=== PATIENT | male | born 1935 | race Asian ===

== ENCOUNTER 2016-11-09 18:56 | Emergency (ER) | payer MEDICARE ==
--- NOTE | 2016-11-09 18:49 | ED.REPORT ---
HPI-General Illness Date of Service Nov 09, 2016 ED Provider: Dr. Christian Francis M.D. Patient is an 81 year old male with a history of dementia and hypertension who presents to the ED via EMS after being seen at [facility] for urinary retention onset 0300 this morning. While there, a Ahuja catheter placement was attempted but unsuccessful. Dr. Colbert from urology was consulted and the patient was sent here for additional urology consult and catheter placement. CBC and metabolic panel at [facility] were unremarkable. Patient had good kidney function. The patient now reports suprapubic pain and urinary retention. History is limited due to patient's supposed underlying dementia. He has had similar symptoms in the past. Patient is DNR/DNI. Nursing Notes Stated Complaint: URINARY RETENTION Nursing Notes Reviewed: Yes Allergies: Coded Allergies: No Known Allergies (Unverified , 11/09/16) Scheduled Ciprofloxacin (Ciprofloxacin) 500 Mg Tablet 500 MG PO BID General Time Seen by MD: 18:49 Chief Complaint Other (Urinary Retention) Hx Obtained From: EMS Arrived By: Ambulance Onset Occurred: 17 - 20 hours ago Symptom Duration: Since onset Location: : Abdomen Quality: Painful Severity: Current: Moderate Severity: Maximum: Moderate Pertinent Negative: Relieved by nothing Recent Healthcare: Recent doctor visit, Recent testing Past Medical History Past Medical History Notes: Daughter: Robert Hidalgo [phone] Patient is DNR/DNI Past Medical History Dementia Hypertension Spinal cord fracture Past Surgical History None reported Smoking History Unknown if Ever Smoker Social History Other Social History: Good social support, , Lives with children Review of Systems Patient reports urinary retention and suprapubic pain. Unable to Obtain ROS Patient condition, Mental status (Dementia) Physical Exam Vital Signs Vital Signs Date Time Temp Pulse Resp B/P Pulse Ox O2 Delivery O2 Flow Rate FiO2 11/09/16 19:04 36.8 80 16 165/64 99 Room Air Initial VS: Reviewed Skin: Warm, Dry Psychiatric: Mood/affect normal, Behavior normal General/Constitutional: Awake, Alert Appearance / Presentation: Positive: Cachectic, Uncomfortable Head / Eyes: Atraumatic, Normocephalic ENT: Airway patent, Mucous membranes moist Respiratory / Chest: Breath sounds NL, Breath sounds = bilat, No respiratory distress Cardiovascular: Heart rate NL, Regular rhythm, Heart sounds NL, No gallop, No murmurs, No rubs Abdomen: Atraumatic Tenderness/Guarding/Rebound: Positive: Tender suprapubic Fullness in suprapubic region Interpretation & Diagnostics Lab Results Interpretation Test 11/09/16 19:41 Urine Color Yellow (YELLOW) Urine Appearance Cloudy (CLEAR,HAZY) Urine pH 6.5 (5.0-8.0) Urine Specific [place] <1.005 (1.003-1.035) Urine Protein Negativemg/dL (NEG,TRACE) Urine Glucose (UA) Negativemg/dL (NEGATIVE) Urine Ketones Negativemg/dL (NEGATIVE) Urine Occult Blood Large (NEGATIVE) Urine Nitrite Negative (NEGATIVE) Urine Bilirubin Negative (NEGATIVE) Urine Urobilinogen Normalmg/dL (NORMAL) Urine Leukocyte Esterase Negative (NEGATIVE) Urine RBC 11-50/hpf (0-2) Urine WBC 0-5/hpf (0-5) Urine Epithelial Cells Occasional/hpf (NONE-MOD) Urine Crystals Amorphous urates (NONE Urine Bacteria None/hpf (NONE-FEW) Urine Hyaline Casts None/lpf (NONE) Urine Granular Casts None seen (NONE SEEN) Urine Waxy Casts None seen (NONE SEEN) Urine Red Blood Cell Casts None seen (NONE SEEN) Urine White Blood Cell Casts None seen (NONE SEEN) Urine Mucus None seen (None Seen) Urine Trichomonas None seen (NONE SEEN) Urine Yeast None (NONE SEEN) Urinalysis Comment None Urine Culture Reflexed Not indicated Re-Eval/Medical Decision Med Decision/Clinical Course Patient is an 81 year old male with a history of dementia and hypertension who presents to the ED via EMS after being seen at [facility] for urinary retention onset 0300 this morning. While there, a Ahuja catheter placement was attempted but unsuccessful. Dr. Colbert from urology was consulted and the patient was sent here for Ahuja catheter placement. CBC and metabolic panel at [facility] were "unremarkable". Patient had good kidney function. History is limited due to patient's underlying dementia. He has had similar symptoms in the past. Patient was discussed with his daughter and he is DNR/DNI. Per our conversation they do not want him admitted to the hospital and their goals are his comfort. Here in the emergency room he is afebrile and hemodynamically stable. He is in no significant distress. Reviewed studies obtained at [facility] earlier today, prior to transport: Chest x-ray indicated no acute cardiopulmonary process. CMP was unremarkable with BUN of 32 and Creatinine of 0.4. Patient had no leukocytosis and a hematocrit of 35.7. Here in the emergency room the patient was not able to provide much history though he had fullness about the suprapubic region and reported being unable to urinate. On his arrival Dr. Ross and came to the bedside to place Ahuja catheter. Voided a significant amount of clear yellow urine. His tachycardia resolved and he remained hemodynamically stable. Of note the patient is quite cachectic and overall chronically ill-appearing however this seems to be his baseline and goals of care at this time are comfort. With family and they will come pick him up at [address] PM. Per discussion with Dr. Ross he was treated with one dose of prophylactic IV antibiotics here in the emergency room and will be discharged with a 3 day course of antibiotics. Dr. Ross will arrange for follow-up. Follow-up and return precautions were provided in detail and he was discharged in stable condition. Source of Hx: Old records Time of Eval: 19:21 Re-Evaluation/Progress Note: Discussed patient's case with his daughter. Additional history obtained. Patient is at his baseline and just wants catheter placement. Patient is DNR/DNI and cared for by and children. He will be picked up at 2200. Discussed with patient's daughter lab results, diagnosis, and plan for discharge after catheter placement. Follow-up and return to the ER instructions given. She agrees with plan for care and all questions were addressed. Consultation #1: Referral / Consult Name: Iman Colbert MD Consulted With: Urology Call Returned at: 19:26 Rubber Covering Machine Operator: Will see patient, Agrees with nestor, Agrees with plan Consultation #2: Referral / Consult Name: Iman Colbert MD Call Returned at: 19:55 Rubber Covering Machine Operator: Agrees with nestor, Agrees with plan Note: Catheter was placed successfully. Recommends Levofloxacin and discharge with antibiotics. Counseled Regarding: Diagnosis, Lab results, Need for follow-up, When/why to return to ED Discharge & Departure Primary Impression: Urinary retention Disposition: Home Discharge Condition All VS Reviewed: Yes Condition: Improved Patient Instructions: Ahuja Catheter Insertion (ED), How to Care for Your Ahuja Catheter (ED) Additional Instructions: Thank you for seeking care at the emergency room. You were seen today for urinary retention. A Ahuja catheter has been placed. Please follow-up with the urologist as directed. We have given you a 3 day course of antibiotics to help prevent urinary tract infection. Our primary goal today in the ED was to evaluate you for any life-threatening conditions. Your evaluation was reassuring. You should follow-up with your primary doctor in the next week. I had a discussion with your daughter and it sounds as if you will not be admitted to the hospital today. You should return to the ED immediately if you develop fevers, vomiting, cough, shortness of breath, chest pain, lightheadedness, weakness before catheter is not draining or for any other concerning signs or symptoms. Thank you for letting us partake in your care today. Referrals: [facility] Attestation Portions of this note were transcribed by Brissa Palmer. I, Dr. Francis, personally performed the history, physical exam, and medical decision-making; I reviewed and confirmed the accuracy of the information in the transcribed note. Signed by: Sary Jarvis, 11/09/2016, 20:54 copies to: [facility] Christian Francis MD Nov 09, 2016 18:49 BRISSA PALMER Nov 09, 2016 18:55
[2016-11-09 19:04] VITALS: BP 165/64; PULSE 80; RESP 16; O2SAT 99
[2016-11-09] MEDS ORDERED: levoFLOXacin Inj 500 MG in IV Premix 1 EACH IV ONE (19:55)
--- NOTE | 2016-11-09 20:05 | PCM.HPSURG ---
Subjective Date of Service: Nov 09, 2016 Referring Provider: Admitting Physician: Primary Care Physician: Attending Physician: Chief Complaint Difficult catheter placement History of Present Illness Mr Hidalgo is an 81 M known to me for h/o urinary retention, previously cared for at [facility]. Attempted placement of darby today was impossible given, what sounded like, a fossa navicularis stricture. On arrival, he is in moderate distress though cooperative and very pleasant. He states he can't think well, which is seemingly his baseline, as I have met him in the outpt setting in the past. He states he can't remember when he began having trouble urinating. Allergy Allergies: Coded Allergies: No Known Allergies (Unverified , 11/09/16) Social History Hx Alcohol Use: No Hx Substance Use: No PMH Cardiovascular History Cardiovascular History: Positive for:: Hypertension Denies:: Congestive Heart Failure Respiratory Respiratory History: Denies:: Tuberculosis Other History Diabetes: No Social History Hx Alcohol Use: NoHx Substance Use: No Smoking Status: Unknown if Ever Smoker H&P Surgical Exam Exam General: Alert, Moderate Distress, Other (thin, petite build) Abdomen: Other (SP fullness) Extremities: Warm Neuro: Cranial Nerves 2-12 nl Assessment & Plan Assessment Difficult darby placement Plan: Patient was prepped and draped Given the given history of inability to advance the catheter beyond the fossa, a Sensor wire was advanced into the meatus. It was gently manipulated into the bladder. Dilation with S dilators proceeded in succession, to the highest Fr of 20. I then performed bedside cystourethroscopy to further evaluate his urethra as well as ensure proper placement of the wire into the bladder. - The distal urethra is pale - There are a few rings of stricture. - Within the proximal penile urethra, there was a stricture there too. - Wire was verified as in the bladder Attempted to pass 18 Fr Councill over the wire, but the fossa was still inadequate I then dilated the distal urethra with [place] from 18-22 Fr 18 Fr Councill was placed over the wire, advanced to the bladder, without clear yellow urine output; over 800 ml Overall, he tolerated this well I recommend a dose of IV abx while here in the ER, such as Levaquin 500 mg IV x 1--as well as 3 days of abx for prophylaxis Urine is sent for culture Dispo: - He will go home with darby - He can have this exchanged monthly or try a voiding trial, though given the nature of his stricture, he is highly likely to recur. And given his residence on [place], treating him emergently could be problematic. I would recommend monthly cath changes, but the choice will be entirely up to him. Iman Colbert MD Nov 09, 2016 20:05
[2016-11-09 20:16] LABS: APPEARANCE,URINE CLOUDY (CLEAR,HAZY); COLOR,URINE YELLOW (YELLOW); OCCULT BLOOD,URINE LARGE (NEGATIVE); PH,URINE 6.5 (5.0-8.0); UROBILINOGEN,URINE NORMAL (NORMAL)
[2016-11-09] MEDS ORDERED: CIPR-198 PO (20:36)
[2016-11-09] MEDS ORDERED: _oxyCODONE/APAP 5-325 mg Tablet PO PRN (21:45)
[2016-11-09 22:25] VITALS: BP 106/77; PULSE 88; RESP 16; O2SAT 99
== END 2016-11-09 22:26 | disposition home or self-care (01) ==
LOC: SED 18:56
DX: R33.9 Retention of urine, unspecified (principal); R10.30 Lower abdominal pain, unspecified; F03.90 Unspecified dementia, unspecified severity, without behavioral disturbance, psychotic disturbance, mood disturbance, and anxiety; I10 Essential (primary) hypertension; Z66 Do not resuscitate